=== PATIENT | female | born 1990 | race Caucasian/White ===

== ENCOUNTER 2019-04-10 19:45 | Emergency (ER) | payer SELFPAY ==
[~2019-04-10] VITALS: Ht 149.9 cm; Wt 66.0 kg
[2019-04-10] MEDS ORDERED: ACETAMINOPHEN 325MG TABLET PO ONE (22:45)
[2019-04-11 00:01] VITALS: BP 120/80
== END 2019-04-11 00:02 | disposition home or self-care (01) ==
LOC: ER 19:45
DX: J06.9 Acute upper respiratory infection, unspecified (principal); R21 Rash and other nonspecific skin eruption; K21.9 Gastro-esophageal reflux disease without esophagitis; Z88.3 Allergy status to other anti-infective agents
CPT/HCPCS: 71045; 81025; 87804; 99284

== ENCOUNTER 2019-04-16 20:04 | Emergency (ER) | payer SELFPAY ==
[~2019-04-16] VITALS: Ht 149.9 cm; Wt 66.0 kg
[2019-04-16] MEDS ORDERED: PREDNISONE 20MG TABLET PO ONE (21:00)
[2019-04-16 21:30] VITALS: BP 116/69
== END 2019-04-16 22:12 | disposition home or self-care (01) ==
LOC: ER 20:04
DX: J40 Bronchitis, not specified as acute or chronic (principal); R05 Cough; Z88.3 Allergy status to other anti-infective agents
CPT/HCPCS: 99283; J7512

== ENCOUNTER 2024-10-09 22:33 | Emergency (ER) | payer SELFPAY ==
[~2024-10-09] VITALS: Ht 149.9 cm; Wt 73.0 kg
[2024-10-09 22:42] VITALS: TEMP 36.7; O2SAT 100
[2024-10-09 23:57] LABS: CLARITY URINE CLEAR (CLEAR); COLOR URINE YELLOW (YELLOW); GLUCOSE URINE NEGATIVE (NEGATIVE); KETONES URINE NEGATIVE (NEGATIVE); LEUKOCYTE ESTERASE URINE NEGATIVE (NEGATIVE); NITRITE URINE NEGATIVE (NEGATIVE); OCCULT BLOOD URINE NEGATIVE (NEGATIVE); PH URINE 6.0 (4.5-8.0); PROTEIN URINE NEGATIVE (NEGATIVE); SPECIFIC GRAVITY URINE 1.013 (1.005-1.030); UROBILINOGEN URINE 0.2 E.U./dL (0.2-1.0)
[2024-10-10 01:27] LABS: BASOPHILS % 0.4 % (0.0-2.0); EOSINOPHILS % 1.9 % (0.0-5.0); HEMATOCRIT. 43.3 % (36.0-48.0); HEMOGLOBIN. 14.7 g/dL (12.0-16.0); LYMPHOCYTES % 40.3 % (20.0-50.0); MEAN PLATELET VOLUME 8.4 fl (7.4-10.4); MONOCYTES % 8.0 % (2.0-8.0); NEUTROPHILS % 49.4 % (40.0-76.0); PLATELET 277 x1000/uL (130-400); RED BLOOD CELL COUNT 4.83 mill/uL (4.2-5.4); RED CELL DISTRIBUTION WIDTH 14.1 % (11.6-14.6)
[2024-10-10 01:39] LABS: CREATININE 0.6 mg/dL (0.6-1.0); UREA NITROGEN BLOOD 10 mg/dL (9-23)
[2024-10-10 01:47] LABS: TROPONIN I HIGH SENSITIVITY < 4 ng/L (3.0-34)
[2024-10-10 02:28] VITALS: BP 116/77; PULSE 65; RESP 12; O2SAT 100
[2024-10-10 02:47] LABS: HCG SCREEN NEGATIVE
== END 2024-10-10 02:33 | disposition home or self-care (01) ==
LOC: ER 22:33
DX: R07.9 Chest pain, unspecified (principal); Z88.1 Allergy status to other antibiotic agents
CPT/HCPCS: 36415; 71045; 80048; 81003; 81025; 84484; 84703; 85025; 85379; 93005; 99285